=== PATIENT | male | born 1995 | race Caucasian/White ===

== ENCOUNTER 2024-01-01 18:46 | Emergency (ER) | payer SELFPAY ==
[~2024-01-01] VITALS: Ht 165.1 cm; Wt 70.0 kg
[2024-01-01 20:15] VITALS: BP 137/77; PULSE 94; RESP 17; TEMP 98.4; O2SAT 98
== END 2024-01-01 21:57 | disposition left against medical advice (07) ==
LOC: ER 18:46
DX: M79.672 Pain in left foot (principal); M79.671 Pain in right foot; Z53.21 Procedure and treatment not carried out due to patient leaving prior to being seen by health care provider